=== PATIENT | female | born 1980 | race Caucasian/White ===

== ENCOUNTER 2021-12-04 10:49 | Emergency (ER) | payer OTHER ==
[2021-12-04 11:16] VITALS: BP 163/95; PULSE 86; TEMP 98.1; BMI 23.8
[2021-12-04 12:59] LABS: EPI CELLS >36 /uL (0-25.1); HYALINE CASTS 4 /uL (0-3.1); PH,URINE 6.5 (5.0-8.0); URINE APPEARANCE CLOUDY; URINE BACTERIA 11 /uL (0-1359); URINE BILIRUBIN NEGATIVE (NEGATIVE); URINE COLOR YELLOW; URINE GLUCOSE (UA) NEGATIVE (NEGATIVE); URINE KETONE NEGATIVE (NEGATIVE); URINE LEUK ESTERASE 1+ (NEGATIVE); URINE NITRITE NEGATIVE (NEGATIVE); URINE PROTEIN NEGATIVE (NEGATIVE); URINE RBC 14 /uL (0-23.9); URINE UROBILINOGEN 0.2 mg/dL (0.2-1.0); URINE WBC 10 /uL (0-25.8)
[2021-12-04 13:00] LABS: HCG,QUALITATIVE URINE Negative
[2021-12-04 13:35] LABS: YEAST NONE SEEM (NEGATIVE)
== END 2021-12-04 13:32 | disposition home or self-care (01) ==
LOC: JERFT 10:49
DX: B37.9 Candidiasis, unspecified (principal)
CPT/HCPCS: 81003; 84703; 87077; 87086; 99283-25

== ENCOUNTER 2022-06-03 11:45 | Emergency (ER) | payer OTHER ==
[2022-06-03 11:57] VITALS: BP 126/80; PULSE 73; RESP 18; TEMP 97.8; BMI 32.8
[2022-06-03] MEDS ORDERED: ONDANSETRON 4 MG/2 ML VIAL IVPUSH ONE (12:29)
[2022-06-03] MEDS ORDERED: SODIUM CHLORIDE 0.9% 500 ML INFUS.BAG IV ONE (12:29)
[2022-06-03] MEDS ORDERED: morphine CARPU-JECT 2 MG/1 ML DISP.SYRIN IVPUSH ONE (12:29)
[2022-06-03] MEDS ORDERED: ONDANSETRON 4 MG/2 ML VIAL ONE (12:48)
[2022-06-03 12:57] LABS: BASO % 0.5 % (0-2.0); EOS % 2.2 % (0-4.5); HEMATOCRIT 35.6 % (32.4-45.2); HEMOGLOBIN 11.2 GM/dL (10.7-15.3); LYMPH % 44.4 % (8-40); MCH 23.4 pg (25.7-33.7); MCHC 31.4 g/dl (32.0-36.0); MEAN CELL VOLUME 74.6 fl (80-96); MEAN PLT VOLUME 8.8 fl (7.5-11.1); MONO % 6.1 % (3.8-10.2); NEUT % 46.8 % (42.8-82.8); PLATELET COUNT 320 10^3/uL (134-434); RBC 4.77 M/mm3 (3.60-5.2); RDW 17.7 % (11.6-15.6); WHITE BLOOD COUNT 7.1 K/mm3 (4.0-10.0)
[2022-06-03 13:12] LABS: URINE APPEARANCE TURBID; URINE BILIRUBIN NEGATIVE (NEGATIVE); URINE COLOR YELLOW; URINE GLUCOSE (UA) NEGATIVE (NEGATIVE); URINE KETONE NEGATIVE (NEGATIVE); URINE LEUK ESTERASE NEGATIVE (NEGATIVE); URINE NITRITE NEGATIVE (NEGATIVE); URINE PROTEIN NEGATIVE (NEGATIVE); URINE UROBILINOGEN 0.2 mg/dL (0.2-1.0)
[2022-06-03 13:14] LABS: HCG,QUALITATIVE URINE Negative
[2022-06-03 13:21] LABS: ALBUMIN 3.2 g/dl (3.4-5.0); BLOOD UREA NITROGEN 11.8 mg/dL (7-18); CALCIUM 8.5 mg/dL (8.5-10.1)
[2022-06-03 13:24] LABS: CREATININE 0.5 mg/dL (0.55-1.3)
[2022-06-03 13:25] LABS: BILIRUBIN,TOTAL 0.3 mg/dL (0.2-1); TOT PROT 7.2 g/dl (6.4-8.2)
[2022-06-03] MEDS ORDERED: FAMOTIDINE 20 MG/50 ML IVPB 20 MG/50 ML MG IVPB ONE ×2 (15:55→16:06)
[2022-06-03] MEDS ORDERED: MAG HYDROX/AL HYDROX/SIMETH 30 ML UNIT-DOSE CUP PO ONE (15:55)
[2022-06-03] MEDS ORDERED: MAG HYDROX/AL HYDROX/SIMETH 30 ML UNIT-DOSE CUP ONE (16:06)
== END 2022-06-03 19:50 | disposition home or self-care (01) ==
LOC: JER 11:45
PROC: 3E033GC Introduction of Other Therapeutic Substance into Peripheral Vein, Percutaneous Approach (ICD-10-PCS; principal; 2022-06-03)
PROC: 3E033NZ Introduction of Analgesics, Hypnotics, Sedatives into Peripheral Vein, Percutaneous Approach (ICD-10-PCS; 2022-06-03)
PROC: 3E033GC Introduction of Other Therapeutic Substance into Peripheral Vein, Percutaneous Approach (ICD-10-PCS; 2022-06-03)
DX: R10.13 Epigastric pain (principal)
CPT/HCPCS: 36415; 71046-TC-FY; 74177-TC; 76705-TC; 80053; 81003; 83690; 84703; 85025; 87086; 93005; 93010; 99285-25; C9803-CS; Q9967; U0003; U0005